=== PATIENT | male | born 1995 | race Two or more races ===

== ENCOUNTER 2024-06-29 23:00 | Inpatient (IN) | payer OTHER ==
[~2024-06-29] VITALS: Ht 165.1 cm; Wt 81.6 kg
[~2024-06-29 23:00] MED LIST: DEPAKOTE ER250 MG; ONDANSETRON ODT4 MG PO; RISPERDAL0.5 MG
--- NOTE | 2024-06-29 23:35 | NUR ---
paciente refiere diarreas desde el jueves, tambien refiere tos, fiebre, nauseas . refiere que fue visto en [facility] el viernes con receta y no merida damian
[2024-06-29] MEDS ORDERED: TOPAMAX50 MG PO (23:36)
[2024-06-30] MEDS ORDERED: HYOSCYAMINE SULFATE 0.125 MG TAB.SUBL SL STA (00:27)
[2024-06-30] MEDS ORDERED: ONDANSETRON HCL 2 MG/ML VIAL IV STA (00:27)
[2024-06-30] MEDS ORDERED: 0.9 % SODIUM CHLORIDE 1,000 ML IV ONE (00:30)
[2024-06-30] MEDS ORDERED: LACTOBACILLUS ACIDOPHILUS 1 CAP CAP PO STA ×2 (00:31→05:41)
[2024-06-30] MEDS ORDERED: FAMOTIDINE/PF 20 MG/2 ML VIAL IV PUSH STA (00:31)
[2024-06-30] MEDS ORDERED: ONDANSETRON HCL 2 MG/ML VIAL ONE (00:33)
[2024-06-30] MEDS ORDERED: HYOSCYAMINE SULFATE 0.125 MG TAB.SUBL ONE (00:33)
[2024-06-30] MEDS ORDERED: FAMOTIDINE/PF 20 MG/2 ML VIAL ONE (00:34)
[2024-06-30] MEDS ORDERED: LACTOBACILLUS ACIDOPHILUS 1 CAP CAP PO ONE ×3 (00:34→15:43)
[2024-06-30] MEDS ORDERED: ACETAMINOPHEN 500 MG GEL..CAP PO ONE (00:38)
--- NOTE | 2024-06-30 00:46 | NUR ---
SE EDUCA A PACIENTE SOBRE TRATAMIENTO MEDICO EL CUAL REFIERE ENTENDER, SE REALIZA SERGIO DE MUESTRAS BAJO MEDIDAS ASEPTICAS Y SE ADMINISTRA MEDICAMENTOS VALERY ORDEN MEDICA.
[2024-06-30 01:50] LABS: CALCIUM 8.4 mg/dL (8.5-10.1); CREATININE SERUM 1.22 mg/dL (0.70-1.30); GFR 70.73; POTASSIUM 3.7 mEq/L (3.5-5.1)
[2024-06-30 01:54] LABS: HEMATOCRIT 42.1 % (39.0-48.0); HEMOGLOBIN 14.2 g/dL (13-16.00); MEAN CORPUSCULAR HEMOGLOBIN 29.6 pg (27.00-32.0); MEAN CORPUSCULAR HGB CONC 33.6 g/dl (32.0-36.0); PLATELET COUNT 162 K/uL (150-450); RED BLOOD COUNT 4.79 M/uL (4.00-6.00); RED CELL DISTRIBUTION WIDTH 14.1 % (11.5-14.5)
[2024-06-30 03:48] LABS: COVID-19 AG NEGATIVE (NEGATIVE); INFLUENZA A AG NEGATIVE (NEGATIVE)
[2024-06-30 06:37] LABS: URINE APPEARANCE Clear; URINE BILIRRUBIN Negative (NEGATIVE); URINE BLOOD Negative; URINE COLOR Dark Yellow; URINE GLUCOSE Negative (NEGATIVE); URINE KETONE 15 (NEGATIVE); URINE LEUKOCYTE Negative; URINE NITRATE Negative; URINE PROTEIN Trace (NEGATIVE); URINE UROBILINOGEN 0.2 E.U./dl
[2024-06-30 06:38] LABS: URINE BACTERIA 28.1 uL (0.0-1933); URINE EPITHELIAL CELLS 7.4 uL (0.0-38.8); URINE RBC 8.1 uL (0.0-20.8); URINE WBC 2.9 uL (0.0-23.2)
--- NOTE | 2024-06-30 07:18 | NUR ---
PACIENTE ALERTA Y ORIENTADO X3 EN [place] POSICION MAS BAJA Y BARANDAS ELEVADAS POR SEGURIDAD. CANALIZADO CON IVF'S VALERY ORDEN MEDICA. PACIENTE CONSULTADO CON DR WAYNE CHAPMAN.
[2024-06-30] MEDS ORDERED: METRONIDAZOLE/SODIUM CHLORIDE 500 MG/100 ML PIGGYBACK IV ONE ×3 (08:30→15:43)
[2024-06-30] MEDS ORDERED: CIPROFLOXACIN IN 5 % DEXTROSE 400 MG/200 ML PIGGYBAG IV ONE ×3 (08:30→15:43)
[2024-06-30] MEDS ORDERED: RINGERS SOLUTION,LACTATED 1,000 ML IV STA (10:42)
[2024-06-30] MEDS ORDERED: PANTOPRAZOLE SODIUM 4 MG/ML REDILUIDO IV SCH (15:12)
[2024-06-30] MEDS ORDERED: LOPERAMIDE HCL 2 MG CAPSULE PO ONE ×2 (15:15→15:42)
[2024-06-30] MEDS ORDERED: BISMUTH SUBSALICYLATE 524 MG/30 ML BLIST.PACK PO PRN (15:15)
[2024-06-30] MEDS ORDERED: KETOROLAC TROMETHAMINE 30 MG VIAL IV PRN (15:30)
[2024-06-30] MEDS ORDERED: MEPERIDINE HCL/PF 25 MG/ML VIAL IV PRN (15:30)
[2024-06-30] MEDS ORDERED: BISMUTH SUBSALICYLATE 524 MG/30 ML BLIST.PACK PO ONE (15:43)
[2024-06-30] MEDS ORDERED: PANTOPRAZOLE SODIUM 40 MG/VIAL VIAL IV SCH (16:00)
[2024-06-30 16:35] VITALS: BP 130/80
[2024-06-30] MEDS ORDERED: PATIENTS OWN MEDICATION (MEDICAMENTO EN PISO) PO SCH ×2 (17:00)
[2024-06-30] MEDS ORDERED: METRONIDAZOLE/SODIUM CHLORIDE 100 ML IV SCH (17:00)
[2024-06-30] MEDS ORDERED: DIVALPROEX SODIUM 250 MG TABLET.DR PO SCH (17:00)
[2024-06-30] MEDS ORDERED: CIPROFLOXACIN IN 5 % DEXTROSE 200 ML IV SCH (17:00)
[2024-06-30] MEDS ORDERED: LACTOBACILLUS ACIDOPHILUS 1 CAP CAP PO SCH (17:00)
[2024-06-30] MEDS ORDERED: RISPERIDONE 0.25 MG TABLET PO SCH (17:00)
[2024-06-30 21:36] VITALS: BP 104/59
[2024-07-02 02:14] VITALS: BP 83/50; O2SAT 96
[2024-07-02 08:59] VITALS: BP 113/59
[2024-07-02] MEDS ORDERED: RINGERS SOLUTION,LACTATED 1,000 ML IV SCH (15:45)
[2024-07-02 17:53] VITALS: BP 110/70; O2SAT 97
[2024-07-03 02:37] VITALS: BP 97/63; O2SAT 96
[2024-07-03 07:22] LABS: ALBUMIN 2.9 gm/dL (3.4-5.0); BILIRUBIN TOTAL 0.63 mg/dL (0.3-1.2); CALCIUM 8.4 mg/dL (8.5-10.1); CREATININE SERUM 0.87 mg/dL (0.70-1.30); GFR 104.49; GLOBULINA 3.4 G/DL (2.4-3.5); PHOSPHOROUS 3.4 mg/dL (2.5-4.9); POTASSIUM 4.07 mEq/L (3.5-5.1); TOTAL PROTEIN 6.3 gm/dL (6.4-8.2)
[2024-07-03 09:44] VITALS: BP 116/75; O2SAT 98
[2024-07-03] MEDS ORDERED: LOPERAMIDE HCL 2 MG CAPSULE PO STA (11:07)
[2024-07-03] MEDS ORDERED: LOPERAMIDE HCL 2 MG CAPSULE PO SCH (13:00)
[2024-07-03 13:52] LABS: HEMATOCRIT 40.8 % (39.0-48.0); HEMOGLOBIN 13.6 g/dL (13-16.00); MEAN CORPUSCULAR HEMOGLOBIN 29.6 pg (27.00-32.0); MEAN CORPUSCULAR HGB CONC 33.3 g/dl (32.0-36.0); PLATELET COUNT 267 K/uL (150-450); RED BLOOD COUNT 4.59 M/uL (4.00-6.00); RED CELL DISTRIBUTION WIDTH 14.1 % (11.5-14.5)
[2024-07-03] MEDS ORDERED: METROnidazole 500 MG TABLET PO SCH (17:00)
[2024-07-03 18:03] VITALS: BP 111/75
[2024-07-03] MEDS ORDERED: CIPROFLOXACIN HCL 500 MG TABLET PO SCH (21:00)
[2024-07-03] MEDS ORDERED: FAMOtidine 20 MG TABLET PO SCH (21:00)
[2024-07-04 00:16] VITALS: BP 102/65; O2SAT 97
[2024-07-04] MEDS ORDERED: PANTOPRAZOLE SODIUM 40 MG TABLET.DR PO SCH (09:00)
[2024-07-04 09:56] VITALS: BP 96/59; O2SAT 98
[2024-07-04] MEDS ORDERED: INTESTINEX680 M1 PO (12:32)
[2024-07-04] MEDS ORDERED: LEVSIN0.125 MG PO (12:33)
[2024-07-04] MEDS ORDERED: PANTOPRAZOLE SO40 MG PO (12:33)
== END 2024-07-04 12:57 | disposition home or self-care (01) | DRG 392 ==
LOC: ER 23:01 → MEDJ 06-30 17:35
PROVIDERS: General Practice; ADMIT Internal Medicine; ATTEND Internal Medicine
PROC: BW21YZZ Computerized Tomography (CT Scan) of Abdomen and Pelvis using Other Contrast (ICD-10-PCS; principal; 2024-06-30)
DX: K52.9 Noninfective gastroenteritis and colitis, unspecified (principal); G91.9 Hydrocephalus, unspecified; E87.20 Acidosis, unspecified; E87.8 Other disorders of electrolyte and fluid balance, not elsewhere classified; G40.909 Epilepsy, unspecified, not intractable, without status epilepticus